=== PATIENT | female | born 1990 | race Caucasian/White ===

== ENCOUNTER 2018-04-16 10:10 | Outpatient (CLI) | payer OTHER | END 2018-04-16 22:03 | disposition home or self-care (01) | LOC: MLB 10:10 | DX: Z01.411 Encounter for gynecological examination (general) (routine) with abnormal findings (principal); Z11.3 Encounter for screening for infections with a predominantly sexual mode of transmission | CPT/HCPCS: 36415; 86592; 86694; 86702 ==